=== PATIENT | female | born 1985 | race Hispanic/Latino ===

== ENCOUNTER 2019-03-21 14:32 | Emergency (ER) | payer MEDICAID ==
--- NOTE | 2019-03-21 15:43 | Emergency Department Report ---
Chief Complaint: Abdominal Pain Stated Complaint: ABD PAIN Time Seen by Provider: 03/21/19 15:41 - HPI History of Present Illness: pt presents with right sided abd pain that started a week ago describes it as a pressure no N/V/D no fever no urinary sx MSE screening note: Focused history performed. Due to findings the following was ordered: labs, UA, urine preg ED Disposition for MSE Condition: Stable Instructions: Abdominal Pain (ED)
[2019-03-21 15:45] VITALS: BP 115/65
[2019-03-21 16:16] LABS: Basophils # (Auto) 0.1 K/mm3 (0.0-0.1); Basophils % (Auto) 1.2 % (0.0-1.8); Eosinophils % (Auto) 0.5 % (0.0-4.3); Hematocrit 33.2 % (30.3-42.9); Hemoglobin 10.8 gm/dl (10.1-14.3); Lymphocytes # (Auto) 1.6 K/mm3 (1.2-5.4); Lymphocytes % (Auto) 27.4 % (13.4-35.0); Mean Corpuscular HGB Conc 32 % (30-34); Mean Corpuscular Volume 85 fl (79-97); Monocytes # (Auto) 0.4 K/mm3 (0.0-0.8); Platelet Count 298 K/mm3 (140-440); Red Blood Count 3.91 M/mm3 (3.65-5.03); Red Cell Distribution Width 13.8 % (13.2-15.2)
[2019-03-21 16:26] LABS: HCG Qualitative,Urine Negative (Negative)
[2019-03-21 16:28] LABS: Bilirubin,Urine NEG (Negative); Blood,Urine SM (Negative); Color,Urine Straw (Yellow); Protein,Urine <15 mg/dL mg/dL (Negative); Urobilinogen,Urine < 2.0 mg/dL (<2.0); WBC,Urine < 1.0 /HPF (0.0-6.0)
[2019-03-21 16:44] LABS: Albumin 4.1 g/dL (3.9-5); Calcium 8.6 mg/dL (8.4-10.2)
--- NOTE | 2019-03-21 18:58 | Emergency Department Report ---
ED Abdominal Pain HPI - General Chief Complaint: Abdominal Pain Stated Complaint: ABD PAIN Time Seen by Provider: 03/21/19 15:41 Source: patient Mode of arrival: Ambulatory Limitations: No Limitations - History of Present Illness Initial Comments: 33-year-old female comes in for chronic right lower quadrant pain with groin pain and right leg pain. Patient voices been dealing with this intermittently for years. This episode has been lasting a week. Patient reports she has seen her FINANCIAL OPERATIONS CLERK provider which she referred her to a vascular provider and equal clear name vascular referred patient back to FINANCIAL OPERATIONS CLERK. FINANCIAL OPERATIONS CLERK did refer patient to surgery at [facility] surgery refer patient back to FINANCIAL OPERATIONS CLERK. Patient's primary care doctor is Dr. Willie Aviles. Patient reports that she has a bulge in her right lower left quadrant. Patient reports she's had a CT of her abdomen and he might [place]. She does admit to having a LEEP procedure in 2013. She reports at that time the LEEP was not successful as they shaved much off for cervix and scar tissue block or fifth of the cervix. Patient had buildup of blood in her uterus which caused a rupture. MD Complaint: abdominal pain -: week(s) (1 recent pain), year(s) (2) Location: RLQ Radiation: RLQ Migration to: suprapubic Severity: mild Severity scale (0 -10): 7 Quality: cramping, fullness Consistency: intermittent Improves With: medication Worsens With: nothing Associated Symptoms: denies other symptoms - Related Data Allergies Allergy/AdvReac Type Severity Reaction Status Date / Time Penicillins Allergy Rash Verified 03/21/19 14:34 ED Review of Systems ROS: Stated complaint: ABD PAIN Other details as noted in HPI Comment: All other systems reviewed and negative ED Past Medical Hx - Past Medical History Previous Medical History?: No - Surgical History Past Surgical History?: No - Social History Smoking Status: Never Smoker Substance Use Type: None ED Physical Exam - General Limitations: No Limitations General appearance: alert, in no apparent distress - Head Head exam: Present: atraumatic, normocephalic - Eye Eye exam: Present: normal appearance - ENT ENT exam: Present: mucous membranes moist - Neck Neck exam: Present: normal inspection - Respiratory Respiratory exam: Present: normal lung sounds bilaterally. Absent: respiratory distress - Cardiovascular Cardiovascular Exam: Present: regular rate, normal rhythm. Absent: systolic murmur, diastolic murmur, rubs, gallop - GI/Abdominal GI/Abdominal exam: Present: soft, normal bowel sounds - Extremities Exam Extremities exam: Present: normal inspection - Back Exam Back exam: Present: normal inspection - Neurological Exam Neurological exam: Present: alert, oriented X3 - Psychiatric Psychiatric exam: Present: normal affect, normal mood - Skin Skin exam: Present: warm, dry, intact, normal color. Absent: rash ED Course Vital Signs 03/21/19 15:41 Temperature 99.2 F Pulse Rate 81 Respiratory 18 Rate Blood Pressure 115/65 O2 Sat by Pulse 100 Oximetry ED Medical Decision Making - Lab Data Result diagrams: 03/21/19 15:58 03/21/19 15:58 - Radiology Data Radiology results: report reviewed Patient: ALEXIS CONTEH MR#: [id number] : 1985 Acct:[id number] Age/Sex: 33 / F ADM Date: 03/21/19 Loc: ED Attending Dr: Ordering Physician: JAIDA WAN Date of Service: 03/21/19 Procedure(s): CT abdomen pelvis w con Accession Number(s): [id number] cc: JAIDA WAN PROCEDURE: CT ABDOMEN PELVIS W CON HISTORY: rlq pain FINDINGS: Unenhanced CT of the abdomen and pelvis was performed. The heart is normal in size. The lung bases appear clear. ABDOMEN: There is focal fatty infiltration of the liver adjacent falciform ligament. No suspect focal hepatic lesion is seen. The spleen, adrenal glands, pancreas, gallbladder are unremarkable. There is no renal or ureteral calculus. There is no small or large bowel obstruction. Pelvis: There is a normal appendix. There is no evidence of diverticulitis. The right ovary is unremarkable. There is a thinly septated left ovarian cyst, 2.7 cm. The uterus and urinary bladder are within normal limits. There is no free air. IMPRESSION: ABDOMEN: No renal or ureteral calculus Pelvis: Normal appendix This document is electronically signed by Doe Storey MD., March 21 2019 09:38:19 PM ET Transcribed By: TMOI Dictated By: DOE STOREY MD Electronically Authenticated By: DOE STOREY MD Signed Date/Time: 03/21/192139 DD/ 04 TD/TT: 03/21/192119 - Medical Decision Making Patient has been evaluated by this provider [facility]. Patient has chronic right lower quadrant pain with bulging. Provider ordered a CT CT is negative for any acute abnormalities with discharge patient home to follow-up with her METAL GRINDER provider and primary care provider. Critical care attestation.: If time is entered above; I have spent that time in minutes in the direct care of this critically ill patient, excluding procedure time. ED Disposition Clinical Impression: Chronic pain in female pelvis Disposition: - TO HOME OR SELFCARE Is pt being admited?: No Does the pt Need Aspirin: No Condition: Stable Instructions: Abdominal Pain (ED) Additional Instructions: Please follow back up with her primary care provider and METAL GRINDER provider. Continue taking [id number] pain medication as it does help. Referrals: BOONE AVILES MD [Primary Care Provider] - 3-5 Days Forms: Work/School Release Form(ED)
--- NOTE | 2019-03-21 21:40 | Cat Scan Report ---
PROCEDURE: CT ABDOMEN PELVIS W CON HISTORY: rlq pain FINDINGS: Unenhanced CT of the abdomen and pelvis was performed. The heart is normal in size. The luis g bases appear clear. ABDOMEN: There is focal fatty infiltration of the liver adjacent falciform ligament. No suspect focal hepatic lesion is seen. The spleen, adrenal glands, pancreas, gallbladder are unremarkable. There is no renal or ureteral blanka culus. There is no small or large bowel obstruction. Pelvis: There is a normal appendix. There is no evidence of diverticulitis. The right ovary is unremarkable. There is a thinly septated left ovarian cyst, 2.7 cm. The uterus and urinary bladder are within normal limits. There is no free air. IMPRESSION: ABDOMEN: No renal or ureteral calculus Pelvis: Normal appendix This document is electronically signed by Doe Storey MD., March 21 2019 09:38:19 PM ET
== END 2019-03-21 22:50 | disposition home or self-care (01) ==
LOC: ED 14:32
DX: R10.2 Pelvic and perineal pain (principal); Z88.0 Allergy status to penicillin
CPT/HCPCS: 36415; 74177; 80053; 81001; 81025; 83690; 85025; 99284; Q9967